=== PATIENT | female | born 1960 | race Caucasian/White ===

== ENCOUNTER → 2020-12-18 | Outpatient (CLI) | payer OTHER ==
--- NOTE | 2020-12-18 09:58 | RAD ---
Examination: CT chest with contrast History: Pulmonary nodule follow-up COMPARISON: None available Technique: Axial CT images of the chest were performed without contrast. Coronal and sagittal reforma ts are performed. Exposure: One or more of the following individualized dose reduction techniques were utilized for thi s examination: 1. Automated exposure control 2. Adjustment of the mA and/or kV according to patient size 3. Use of iterative reconstruction technique FINDINGS: The visualized thyroid gland grossly appears unremarkable . Central airways are patent. Coronary mateo ry calcifications identified. 4 mm nodule identified in the right middle lobe of the lung. 6 mm calci fied granuloma identified in the left upper lobe of the lung. The visualized contrasted liver, spleen , adrenals grossly appears unremarkable. Cholecystectomy clips identified. Mild degenerative changes thoracic spine. IMPRESSION: 1. 4 mm nodule identified in the right middle lobe of the of the lung. Follow-up per [employer] guidelines with a follow-up CT in 6-12 months. Electronically signed by: Ash Jaeger MD (12/18/2020 9:56 AM) [id number]
--- NOTE | 2020-12-19 14:35 | RAD ---
Examination: CT chest with contrast History: Pulmonary nodule follow-up COMPARISON: None available Technique: Axial CT images of the chest were performed without contrast. Coronal and sagittal reformats are performed. Exposure: One or more of the following individualized dose reduction techniques were utilized for this examination: 1. Automated exposure control 2. Adjustment of the mA and/or kV according to patient size 3. Use of iterative reconstruction technique FINDINGS: The visualized thyroid gland grossly appears unremarkable . Central airways are patent. Coronary artery calcifications identified. 4 mm nodule identified in the right middle lobe of the lung. 6 mm calcified granuloma identified in the left upper lobe of the lung. The visualized contrasted liver, spleen, adrenals grossly appears unremarkable. Cholecystectomy clips identified. Mild degenerative changes thoracic spine. IMPRESSION: 1. 4 mm nodule identified in the right middle lobe of the of the lung. Follow-up per [employer] guidelines with a follow-up CT in 6-12 months. MTDD
== END ==
LOC: CT 09:19
PROVIDERS: ATTEND Family Medicine
DX: R91.1 Solitary pulmonary nodule (principal); I25.10 Atherosclerotic heart disease of native coronary artery without angina pectoris; J84.10 Pulmonary fibrosis, unspecified; M47.814 Spondylosis without myelopathy or radiculopathy, thoracic region; Z90.49 Acquired absence of other specified parts of digestive tract
CPT/HCPCS: 71250